=== PATIENT | female | born 1985 | race Caucasian/White ===

== ENCOUNTER → 2021-08-02 | Outpatient (CLI) | payer MEDICAID, SELFPAY ==
--- NOTE | 2021-08-02 14:57 | ECHOD_ITS ---
Version 2 Reason For Study: VALVE REPLACEMENT EVAL Procedure This was a 2D Doppler, Color Flow transthoracic echocardiogram. The exam was of adequate technical quality. Exam performed in department. Left Ventricle Normal LV size. Left ventricular systolic function is normal. The estimated ejection fraction is 65 %. No evidence for diastolic dysfunction. No regional wall motion abnormalities noted. Right Ventricle Normal RV size. ICD or pacer leads identified within the right ventricle. Normal systolic function. Atria Normal left atrium. Normal right atrium. ICD or pacer leads identified within the right atrium. No doppler evidence for ASD. Mitral Valve There is no mitral annular calcification. Normal mitral valve. Trivial mitral valve insufficiency. Tricuspid Valve Right ventricular systolic pressure estimated to be 12 mmHg. Stable appearing bioprosthetic tricuspid valve apparatus. Trivial transvalvular insufficiency of the tricuspid valve. Aortic Valve Trisinus/trileaflet aortic valve. Normal aortic valve. Pulmonic Valve The pulmonic valve is not well visualized. Great Vessels Normal sized aortic root. Pericardium/Pleural No pericardial effusion. MMode/2D Measurements & Calculations LVIDd: 5.7 cm IVSd: 0.50 cm Ao root diam: 3.3 cm LVIDs: 3.6 cm LVPWd: 0.78 cm RVDd: 3.5 cm FS: 37.2 % LAV(MOD-bp): 37.5 ml LVAd ap4: 29.2 cm2 SV(MOD-sp4): 66.5 ml LAV(MOD-bp) Indexed: 20.8 ml/m2 LVLd ap4: 7.6 cm LAV(MOD-sp2): 38.5 ml EDV(MOD-sp4): 93.7 ml LAV(MOD-sp4): 35.6 ml EDV(sp4-el): 94.6 ml LVAs ap4: 13.5 cm2 LVLs ap4: 5.8 cm ESV(MOD-sp4): 27.2 ml ESV(sp4-el): 26.8 ml EF(MOD-sp4): 71.0 % EF(sp4-el): 71.7 % SV(sp4-el): 67.8 ml LA A4 area: 14.9 cm2 LA dimension(2D): 4.0 cm RA A4 area: 15.9 cm2 Doppler Measurements & Calculations MV E max amaury: 89.0 cm/sec Lat Peak E' Amaury: 12.1 cm/sec Med Peak E' Amaury: 8.3 cm/sec MV A max amaury: 53.4 cm/sec E/E' lat: 7.3 E/E' med: 10.7 MV E/A: 1.7 Ao V2 max: 110.7 cm/sec LV V1 max: 92.5 cm/sec TV V2 max: 152.2 cm/sec Ao max P.9 mmHg LV V1 max P.4 mmHg TV max P.3 mmHg TV V2 mean: 115.3 cm/sec TV mean P.7 mmHg ECHO/Echo Complete Interpretation Summary Left ventricular systolic function is normal. The estimated ejection fraction is 65 %. Trivial mitral valve insufficiency. Stable appearing bioprosthetic tricuspid valve apparatus. Trivial transvalvular insufficiency of the tricuspid valve. Right ventricular systolic pressure estimated to be 12 mmHg. No evidence for diastolic dysfunction. ICD or pacer leads identified within the right atrium ICD or pacer leads identified within the right ventricle. Ordering Physician: Alexys Moore Referring Physician: Alexys Moore Performed By: Joie Felipe RCS
== END | disposition home or self-care (01) ==
LOC: CVS 14:56
PROVIDERS: PCP Internal Medicine; Referring Provider Internal Medicine Cardiovascular Disease; Visit Provider Internal Medicine Cardiovascular Disease
DX: Z95.3 Presence of xenogenic heart valve (principal)
CPT/HCPCS: 93306

== ENCOUNTER → 2023-06-25 | Outpatient (CLI) | payer SELFPAY ==
--- NOTE | 2023-06-25 09:57 | ECHOD_ITS ---
Reason For Study: VALVE REPLACEMENT Procedure This was a 2D Doppler, Color Flow transthoracic echocardiogram. Exam performed in department. Left Ventricle Normal LV size. Left ventricular systolic function is normal. The estimated ejection fraction is 65 %. No regional wall motion abnormalities noted. Right Ventricle Normal RV size. ICD or pacer leads identified within the right ventricle. Normal systolic function. Atria Normal left atrium. Normal right atrium. ICD or pacer leads identified within the right atrium. Mitral Valve Normal mitral valve. Tricuspid Valve Bioprosthetic tricuspid valve. Mean gradient across the tricuspid valve is 4.4 mm. Aortic Valve Trisinus/trileaflet aortic valve. Pulmonic Valve Normal pulmonic valve. Great Vessels Normal aortic root. The pulmonary artery is normal size. Normal inferior vena cava. Pericardium/Pleural No pericardial effusion. MMode/2D Measurements & Calculations LVIDd: 5.1 cm IVSd: 0.81 cm LVOT diam: 2.2 cm LVIDs: 3.1 cm LVPWd: 0.95 cm LVOT area: 3.6 cm2 RVDd: 3.5 cm FS: 39.2 % Ao root diam: 3.0 cm LAV(MOD-bp): 45.6 ml LVAd ap4: 22.4 cm2 LAV(MOD-bp) Indexed: 25.6 ml/m2 LVLd ap4: 7.4 cm LAV(MOD-sp2): 48.9 ml EDV(MOD-sp4): 58.8 ml LAV(MOD-sp4): 39.7 ml EDV(sp4-el): 57.4 ml LVAs ap4: 11.9 cm2 LVLs ap4: 6.1 cm ESV(MOD-sp4): 20.2 ml ESV(sp4-el): 19.6 ml EF(MOD-sp4): 65.6 % EF(sp4-el): 65.8 % LVAd ap2: 20.3 cm2 SV(MOD-sp4): 38.6 ml SV(MOD-sp2): 33.5 ml LVLd ap2: 7.3 cm EDV(MOD-sp2): 49.3 ml EDV(sp2-el): 47.8 ml LVAs ap2: 10.0 cm2 LVLs ap2: 5.7 cm ESV(MOD-sp2): 15.7 ml ESV(sp2-el): 15.0 ml EF(MOD-sp2): 68.0 % SV(sp4-el): 37.8 ml LA dimension(2D): 3.8 cm LA A4 area: 16.7 cm2 RA A4 area: 14.3 cm2 TAPSE: 1.7 cm Time Measurements MV dec time: 0.19 sec Doppler Measurements & Calculations MV E max amaury: 80.1 cm/sec Lat Peak E' Amaury: 14.4 cm/sec Med Peak E' Amaury: 10.8 cm/sec MV A max amaury: 56.7 cm/sec E/E' lat: 5.6 E/E' med: 7.4 MV E/A: 1.4 Ao V2 max: 99.8 cm/sec LV V1 max: 88.5 cm/sec MV dec slope: 419.0 cm/sec2 Ao max P.0 mmHg LV V1 max P.1 mmHg Ao V2 mean: 72.4 cm/sec LV V1 mean P.7 mmHg Ao mean P.4 mmHg LV V1 mean: 61.4 cm/sec Ao V2 VTI: 23.1 cm LV V1 VTI: 19.3 cm AV (velocity ratio): 0.83 YESI(I,D): 3.0 cm2 YESI(V,D): 3.2 cm2 SV(LVOT): 70.2 ml TV V2 max: 128.4 cm/sec PA V2 max: 86.4 cm/sec TV max P.7 mmHg PA max PG (full): 1.2 mmHg TV V2 mean: 103.7 cm/sec TV mean P.4 mmHg ECHO/Echo Complete Interpretation Summary Normal LV size. Left ventricular systolic function is normal. The estimated ejection fraction is 65 %. Bioprosthetic tricuspid valve. Mean gradient across the tricuspid valve is 4.4 mm Ordering Physician: Mireya Davalos Performed By: Radha Aguilar RDCS
== END | disposition home or self-care (01) ==
LOC: CVS 09:57
PROVIDERS: Referring Provider Nurse Practitioner Gerontology; Visit Provider Nurse Practitioner Gerontology
DX: Z95.3 Presence of xenogenic heart valve (principal); Z95.0 Presence of cardiac pacemaker
CPT/HCPCS: 93306

== ENCOUNTER 2024-07-23 07:43 | Emergency (ER) | payer BC, SELFPAY ==
[2024-07-23 07:43] VITALS: BP 138/65; PULSE 71; RESP 19; TEMP 36.7; O2SAT 98; BMI 29.3
--- NOTE | 2024-07-23 07:47 | EX.ED.DYSGE1 ---
HPI History of Present Illness Chief Complaint: Ear Problem Informant: patient Onset/Context/Timing Onset: Yesterday Context: Gradual Onset Timing: Continuous Quality: Pressure Location: Right ear Worsened by: Nothing Relieved by: Nothing Narrative Narrative: Patient presents with right ear pain and decreased hearing that has gotten worse since last night. Patient describes her pain as a pressure. Patient states it is localized to the right ear. Patient states nothing makes it worse and nothing makes it better. Patient denies any fevers or chills. Patient states her pain does radiate into her neck. Patient denies any sore throat or rhinorrhea. Patient denies any vertigo or dizziness. 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) Endocarditis of tricuspid valve Tobacco abuse counseling Polysubstance abuse Bipolar 1 disorder H/O emotional problems History of drug abuse in remission Home Medications ?Medication ?Instructions ?Recorded ?Last Taken ?Type amoxicillin 500 mg tablet 500 mg PO .COMPLEX #4 tabs 05/31/24 Unknown Rx ciprofloxacin 0.2 %-hydrocortisone 3 drp RIGHT EAR BID 7 days #10 mL 07/23/24 Unknown Rx 1 % ear drops,suspension (Cipro HC) Allergy/AdvReac Type Severity Reaction Status Date / Time No Known Allergies Allergy Verified 07/23/24 07:43 Family History Grandmother Diabetes Cancer Breast CA Grandmother Diabetes Mother Breast cancer Father Cancer Leukemia Other Depression Mental disorder Surgical History History of tricuspid valve replacement with bioprosthetic valve (~11/29/18) History of open heart surgery Social History Smoking Status: Current every day smoker tobacco type: cigarettes alcohol intake: former substance use type: former substance user caffeine: Yes Type: coffee Number of servings: 1 ROS ROS ED Constitutional Constitutional ED: Denies chills or fever(s) Eyes Eyes: Denies blurry vision or change in vision ENT ENT ED: Reports ear pain right; Denies rhinorrhea or sore throat Cardiovascular Cardiovascular: Denies chest pain or palpitations Respiratory/Chest Respiratory/Chest: Denies cough or dyspnea Gastrointestinal Gastrointestinal: Denies nausea or vomiting Genitourinary Genitourinary ED: Denies dysuria or hematuria Musculoskeletal Musculoskeletal: Denies back pain or neck pain Integumentary Denies abscess or rash Neurologic Neurologic: Denies headache(s) or weakness Allergic/Immunologic Allergic/Immunologic ED: Denies mouth swelling or urticaria EXAM Physical Exam Const Vital Signs: 07/23/24 07:43 Temperature 98.1 F Temperature Source Temporal Pulse Rate 71 Respiratory Rate 19 H Blood Pressure 138/65 H Blood Pressure Mean 89 Pulse Ox 98 Oxygen Delivery Method Room Air Positive well nourished and well developed General Appearance ED: well developed and NAD HEENT Reports moist mucous membranes HEENT Narrative: The left external auditory canal and tympanic membranes were clear. The right external auditory canal is occluded with cerumen. There is mild tenderness with manipulation of the external ear on the right. Neck no lymphadenopathy, supple and no JVD Resp normal respiratory effort and clear to auscultation bilaterally Cardio regular rate and regular rhythm Neuro oriented x3, CN's II-XII intact bilaterally and no sensory deficits noted Sensorium / Orientation: alert Motor Exam: strength 5/5 throughout Psych mental status grossly normal MDM MDM MDM Narrative Medical decision making narrative: Differential diagnosis includes cerumen impaction, otitis externa, and otitis media. Debrox eardrops will be applied to the right ear and the right ear will be irrigated. Treatment and Re-Evaluation :: The right ear was irrigated. There is still a small amount cerumen noted in the right external auditory canal. The right tympanic membrane is clear. The right external auditory canal is edematous and erythematous. Patient was advised that this is likely an otitis externa. Patient was given prescription for Cipro otic drops. Patient was instructed to follow-up with her primary care physician in 5 to 7 days. Patient was instructed to return if worse in any way. Patient understood and was agreeable with the plan. All questions were answered. Discharge Plan Triage Chief Complaint: Ear Problem ED Provider: Kirk Salvador Dx/Rx/DC Orders Clinical Impression: Acute otitis externa of right ear, Presence of biventricular cardiac pacemaker, History of tricuspid valve replacement with bioprosthetic valve Instructions: ED External Ear Infection (Adult) Prescriptions: New Cipro HC 0.2-1 % drops,suspension 3 drp RIGHT EAR BID 7 Days Qty: 10 0RF No Action amoxicillin 500 mg tablet 500 mg PO .COMPLEX Qty: 4 3RF Rx Instructions: 500 mg PO take 4 tabs by mouth 30-60 minutes prior to dental procedure; Primary Care Provider: Care Physician,No Primary Referrals: Care Physician,No Primary [Primary Care Provider] - Print Language: Congolese Disposition Disposition: Home, Self Care
[2024-07-23] MEDS: Carbamide Peroxide 15 ML Bottle 5 DRP OTIC (08:17)
[2024-07-23 11:31] VITALS: BP 122/61; PULSE 70; RESP 18; TEMP 36.7; O2SAT 100
== END 2024-07-23 11:32 | disposition home or self-care (01) ==
PROVIDERS: Emergency Provider Emergency Medicine; Visit Provider Emergency Medicine
DX: H60.91 Unspecified otitis externa, right ear (principal); H61.21 Impacted cerumen, right ear; I47.10 Supraventricular tachycardia, unspecified; I07.9 Rheumatic tricuspid valve disease, unspecified; Z95.0 Presence of cardiac pacemaker; Z95.2 Presence of prosthetic heart valve; F17.210 Nicotine dependence, cigarettes, uncomplicated
CPT/HCPCS: 99283; A4216